=== PATIENT | male | born 1955 | race American Indian/Alaskan Native ===

== ENCOUNTER 2017-11-02 02:22 | Emergency (ER) | payer SELFPAY | END 2017-11-02 02:23 | disposition left against medical advice (07) | LOC: ED 02:22 | DX: Z53.21 Procedure and treatment not carried out due to patient leaving prior to being seen by health care provider (principal) ==

== ENCOUNTER 2021-07-28 21:38 | Emergency (ER) | payer MEDICARE ==
--- NOTE | 2021-07-28 22:17 | Emergency Department Report ---
ED General Adult HPI - General Chief complaint: Alcohol Stated complaint: NOSE BLEED Time Seen by Provider: 07/28/21 22:05 Source: patient, EMS Mode of arrival: Ambulatory Limitations: No Limitations - History of Present Illness Initial comments: Patient is 66 years old male with history of hypertension, hepatitis C and chronic alcoholism. Patient brought to the emergency room via EMS from home after patient started to have nosebleed. EMS stated that patient blood pressure initially was 220/90. Patient stated that [facility] but since the coronavirus he did not have any follow-up or antihypertensive medication to take. Upon arrival to the ER patient is appears to be intoxicated with alcohol however he is alert, oriented x3 and in no acute distress. No nosebleed. Patient blood pressure in the ER is 130/85. Severity scale (0 -10): 5 - Related Data Allergies Allergy/AdvReac Type Severity Reaction Status Date / Time No Known Allergies Allergy Verified 07/29/21 02:41 ED Review of Systems ROS: Stated complaint: NOSE BLEED Other details as noted in HPI Comment: All other systems reviewed and negative Constitutional: denies: chills, fever ENT: epistaxis Respiratory: denies: cough, shortness of breath, SOB with exertion Cardiovascular: denies: chest pain, palpitations Gastrointestinal: denies: abdominal pain, nausea, vomiting Neurological: denies: headache, weakness, numbness, paresthesias, confusion, abnormal gait ED Past Medical Hx - Past Medical History Hx Hypertension: Yes Hx Liver Disease: Yes (Hep C) - Surgical History Past Surgical History?: No ED Physical Exam - General Limitations: No Limitations General appearance: alert, in no apparent distress - Head Head exam: Present: atraumatic, normocephalic, normal inspection - Eye Eye exam: Present: normal appearance, PERRL - ENT ENT exam: Present: other (No active epistaxis.) - Neck Neck exam: Present: normal inspection, full ROM. Absent: tenderness, meningismus - Respiratory Respiratory exam: Present: normal lung sounds bilaterally - Cardiovascular Cardiovascular Exam: Present: regular rate, normal rhythm, normal heart sounds - Extremities Exam Extremities exam: Present: normal inspection, full ROM, normal capillary refill. Absent: tenderness, pedal edema, joint swelling, calf tenderness - Back Exam Back exam: Present: normal inspection, full ROM. Absent: CVA tenderness (R), CVA tenderness (L) - Neurological Exam Neurological exam: Present: alert, oriented X3, CN II-XII intact, normal gait, reflexes normal - Skin Skin exam: Present: warm, intact, normal color ED Course Vital Signs 07/28/21 22:05 Temperature 98.8 F Pulse Rate 91 H Respiratory 18 Rate Blood Pressure 131/90 [Right] O2 Sat by Pulse 98 Oximetry ED Medical Decision Making - Lab Data Result diagrams: 07/28/21 22:30 07/28/21 22:30 - Medical Decision Making Patient is 66 years old male with history of hypertension, hepatitis C and chronic alcoholism. Patient brought to the emergency room via EMS from home af ter patient started to have nosebleed. EMS stated that patient blood pressure initially was 220/90. Patient stated that [facility] has [facility] but since the coronavirus he did not have any follow-up or antihypertensive medication to take. Upon arrival to the ER patient is appears to be intoxicated with alcohol however he is alert, oriented x3 and in no acute distress. No nosebleed. Patient blood pressure in the ER is 130/85. Patient remained stable in the ER with a stable vital sign. Labs reviewed and is unremarkable except for alcohol of 0.22 however patient is alert, oriented x3 and in no acute distress. Patient stated that he wanted to go home and follow[facility]. Patient given a prescription for Norvasc and advised to return to the ER if he develop any new symptoms. Critical care attestation.: If time is entered above; I have spent that time in minutes in the direct care of this critically ill patient, excluding procedure time. ED Disposition Clinical Impression: Epistaxis, Alcohol abuse, Hypertension Disposition: HOME / SELF CARE / HOMELESS Is pt being admited?: No Condition: Stable Instructions: Hypertension (ED), Alcohol Use Disorder, Nosebleed, [id number], Hypertension, Adult Referrals: PRIMARY CARE, [Referring] - 3-5 Days
[2021-07-28 23:15] LABS: Alanine Aminotransferase 34 units/L (7-56); Albumin 3.6 g/dL (3.9-5); BUN/Creatinine Ratio 16; Blood Urea Nitrogen 16 mg/dL (9-20); Hemolysis Index 3
[2021-07-28 23:18] LABS: Basophils # (Auto) 0.1 K/mm3 (0.0-0.1); Eosinophils # (Auto) 0.2 K/mm3 (0.0-0.4); Eosinophils % (Auto) 4.5 % (0.0-4.3); Hematocrit 36.7 % (35.5-45.6); Hemoglobin 12.5 gm/dl (11.8-15.2); Lymphocytes # (Auto) 1.6 K/mm3 (1.2-5.4); Lymphocytes % (Auto) 44.6 % (13.4-35.0); Mean Corpuscular HGB Conc 34 % (32-34); Mean Corpuscular Volume 98 fl (84-94); Monocytes # (Auto) 0.4 K/mm3 (0.0-0.8); Monocytes % (Auto) 11.9 % (0.0-7.3); Platelet Count 143 K/mm3 (140-440); Red Blood Count 3.75 M/mm3 (3.65-5.03); Red Cell Distribution Width 15.2 % (13.2-15.2)
[2021-07-28 23:19] LABS: INR 1.15 (0.87-1.13)
[2021-07-28 23:20] LABS: Partial Thromboplastin Time 27.6 Sec. (24.2-36.6)
[2021-07-29] MEDS ORDERED: LORazepam 2 MG/ML VIAL ONE (02:37)
[2021-07-29] MEDS ORDERED: LORazepam 2 MG/ML VIAL IM ONE (02:46)
[2021-07-29 02:53] VITALS: BP 167/96
== END 2021-07-29 02:50 | disposition home or self-care (01) ==
LOC: ED 21:38
DX: R04.0 Epistaxis (principal); I10 Essential (primary) hypertension; F10.129 Alcohol abuse with intoxication, unspecified; B19.20 Unspecified viral hepatitis C without hepatic coma
CPT/HCPCS: 36415; 80053; 83735; 85025; 85610; 85730; 99283; J2060; 80320; G0480